=== PATIENT | female | born 1955 | race African-American/Black ===

== ENCOUNTER 2024-07-09 20:33 | Emergency (ER) | payer MEDICARE, BC ==
[~2024-07-09] VITALS: Ht 154.9 cm; Wt 95.5 kg
[2024-07-09 21:31] VITALS: TEMP 98.7
[2024-07-09 21:57] VITALS: BP 153/92; PULSE 72; RESP 17; O2SAT 94
[2024-07-09 23:27] LABS: BASOPHILS % (AUTO) 0.2 % (0.0-2.0); EOSINOPHILS % (AUTO) 2.3 % (1.0-6.0); HEMATOCRIT 36.2 % (36-46); HEMOGLOBIN 11.1 g/dL (12.0-16.0); LYMPHOCYTES # (AUTO) 2.3 K/uL (1.0-4.8); MEAN CORPUSCULAR HEMOGLOBIN 22.6 pg (26.0-34.0); MEAN CORPUSCULAR HGB CONC 30.7 G/dL (31.0-37.0); MEAN CORPUSCULAR VOLUME 73 fL (80-100); MONOCYTES # (AUTO) 0.6 K/uL (0.1-1.0); NEUTROPHILS % (AUTO) 56.5 % (40.0-70.0); PLATELET COUNT (AUTO) 240 K/uL (150-450); RED BLOOD CELL COUNT(AUTO) 4.94 MIL/uL (4.00-5.20); RED CELL DISTRIBUTION WIDTH 14.9 % (11.5-14.5); WHITE BLOOD COUNT (AUTO) 7.1 K/uL (4.5-11.0)
[2024-07-09 23:31] LABS: ANION GAP 4 mmol/L (8-16); CALCIUM, TOTAL 9.4 mg/dL (8.8-10.5); CARBON DIOXIDE 32 mmol/L (22-29); CHLORIDE 104 mmol/L (98-107); CREATININE 0.82 mg/dL (0.60-1.30); GLOMERULAR FILTR. RATE CALC > 60 mL/min (>60); GLUCOSE,RANDOM 100 mg/dL (70-110); POTASSIUM 3.8 mmol/L (3.5-5.1); SODIUM SERUM 140 mmol/L (136-145); UREA NITROGEN, BLOOD 16 mg/dL (7-18)
[2024-07-09 23:39] LABS: TROPONIN I-HIGH SENSITIVITY 14 ng/L (<51)
[2024-07-09] MEDS: ACETAMINOPHEN 500 MG TABLET PO ONE (23:45)
[2024-07-09] MEDS: LIDOCAINE 5% TRANSDERMAL PATCH TD ONE (23:45)
== END 2024-07-10 01:46 | disposition left against medical advice (07) ==
LOC: EMS 20:33
DX: R51.9 Headache, unspecified (principal); M54.2 Cervicalgia; R20.2 Paresthesia of skin; E11.9 Type 2 diabetes mellitus without complications; I10 Essential (primary) hypertension; E78.00 Pure hypercholesterolemia, unspecified; K21.9 Gastro-esophageal reflux disease without esophagitis; Z90.49 Acquired absence of other specified parts of digestive tract
CPT/HCPCS: 80048; 84484; 85025; 93005; 99284